=== PATIENT | female | born 1960 | race Caucasian/White ===

== ENCOUNTER → 2016-07-11 | Outpatient (CLI) | payer OTHER ==
--- NOTE | 2016-08-01 11:04 | CODING QUERY NO DIAGNOSIS ---
TREATMENT RENDERED WITHOUT A DIAGNOSIS To promote full compliance with coding requirements relating to patient care, physician participation is requested in all cases of internal grinding machine operator uncertainty. Please assist us with providing a diagnosis/symptom for the test(s) below: A diagnosis/symptom was not documented on your Order. A valid diagnosis/symptom is required to bill all insurances. Please remember that we are unable to code a diagnosis of rule out, probable, possible, questionable, or suspected. Tests that require a diagnosis: * INFLUENZA VIR A OR B ANTIGEN DIAGNOSIS: Provider Signature: Date: Thank you Rebekah Wessington [employer] Once completed, please kindly fax back to [phone] For questions please call [phone]
== END | disposition home or self-care (01) ==
LOC: C.LAB 17:38
PROVIDERS: ATTEND Nurse Practitioner
DX: J18.1 Lobar pneumonia, unspecified organism (principal)

== ENCOUNTER → 2016-08-06 | Outpatient (CLI) | payer OTHER | END | disposition home or self-care (01) | LOC: C.LAB1850 16:23 | PROVIDERS: ATTEND Internal Medicine | DX: E03.9 Hypothyroidism, unspecified (principal) ==

== ENCOUNTER → 2016-09-16 | Outpatient (CLI) | payer OTHER ==
--- NOTE | 2016-09-17 14:34 | MAMMOGRAPHY REPORT ---
BILATERAL DIGITAL SCREENING MAMMOGRAM TOMOSYNTHESIS WITH CAD: 09/16/2016 CLINICAL HISTORY: Routine screening. Patient has no complaints. TECHNIQUE: Breast tomosynthesis in addition to standard 2D mammography was performed. Current study was also evaluated with a Computer Aided Detection (CAD) system. COMPARISON: Comparison is made to exams dated: 06/21/2015 mammogram, 06/20/2014 mammogram, 06/17/2013 mammogram, 06/16/2012 mammogram, 05/21/2011 mammogram, and 12/04/2010 ultrasound - [facility]. BREAST COMPOSITION: The tissue of both breasts is heterogeneously dense, which may obscure small ma sses. FINDINGS: There is a stable metallic biopsy marker in the 11:00 to 12:00 right breast, and stable sc attered benign-appearing calcifications bilaterally. No suspicious mass, architectural distortion o r cluster of microcalcifications is seen. IMPRESSION: ACR BI-RADS CATEGORY 1: NEGATIVE There is no mammographic evidence of malignancy. A 1 year screening mammogram is recommended. The p atient will receive written notification of the results. Approximately 10% of breast cancers are not detected with mammography. A negative mammographic repor t should not delay biopsy if a clinically suggestive mass is present. Adriana Shanks M.D. ay/:09/16/2016 18:21:11 Crop And Soil Scientist: Ana PEDERSON(Susu)(M), [facility] letter sent: Normal 1/2 BI-RADS Code: ACR BI-RADS Category 1: Negative
== END | disposition home or self-care (01) ==
LOC: C.MAMM 15:50
PROVIDERS: ATTEND Obstetrics & Gynecology
DX: Z12.31 Encounter for screening mammogram for malignant neoplasm of breast (principal)

== ENCOUNTER 2025-03-10 07:24 | Observation (INO) ==
--- NOTE | 2025-02-07 12:59 | PAT Medication Instructions ---
Medication Instructions Date of Service February 07, 2025 Home Medications Medication Instructions Recorded diclofenac sodium 1 % topical gel 2 g topical QID PRN pain (scale 12/31/23 (Arthritis Pain (diclofenac)) score 4-6) #100 grams cholecalciferol (vitamin D3) 50 50 mcg PO DAILY #90 caps 07/26/25 mcg (2,000 unit) capsule diclofenac sodium 1 % topical gel (Arthritis Pain (diclofenac)) 2 g topical QID PRN cholecalciferol (vitamin D3) 50 mcg (2,000 unit) capsule 50 mcg PO DAILY levothyroxine 100 mcg tablet 100 mcg PO QAM ASK your surgeon for instructions diclofenac sodium 1 % topical gel (Arthritis Pain (diclofenac)) 2 g topical QID PRN DO NOT take the morning of surgery cholecalciferol (vitamin D3) 50 mcg (2,000 unit) capsule 50 mcg PO DAILY Take morning of surgery With a small sip of water, OTHERWISE NOTHING TO EAT OR DRINK AFTER MIDNIGHT: levothyroxine 100 mcg tablet 100 mcg PO QAM Other Notes If you have any questions please call us at [phone] or [phone] or [phone] or [phone]
--- NOTE | 2025-02-13 09:45 | Anesthesiology Consultation ---
Date of Service February 13, 2025 Assessment & Plan (1) Encounter for pre-operative examination: - Infectious disease screening: Per assessment on 02/13/25- No known recent infectious disease contacts or current infectious disease symptoms. - Outpatient joint assessment: Pt currently scheduled for inpatient pathway. If surgeon requests review for outpatient joint pathway, patient is an acceptable candidate for outpatient joint program from anesthesia standpoint pending surgeon's office assessment that patient is motivated, has good support and completes Same Day Joint Program preop requirements. - [place] PCP visit 02/07/25: "With no prior cardiovascular problems and normal EKG in July 2024 do not anticipate contraindication for incoming surgical procedure.. We should be able to prescribe amoxicillin prior to dental work for prophylactic purposes" - Low TSH 0.038 on 02/08/25 ordered by PCP. Patient states PCP reviewed those labs and already adjusted/decreased her Levothyroxine since then. Free T4 added to preop labs drawn at [facility] 02/13/25- Free T4 WNL at 1.14. Reviewed with Dr. Isabel- nothing further needed preoperatively. At anesthesiologist discretion DOS if further needed after DOS evaluation from their perspective. Chart Review Chart Review: Acceptable Risk for Surgery (pending evaluation DOS) and Patient seen in Pre Admission Testing Teaching & Discussion Pre-Anesthesia Teaching/Discussion Notes: Instructed NPO after midnight before surgery,except medications with 15 cc of water. Medication instructions provided according to the [facility] guidelines. History Surgery Operation Date: 03/10/25 11:00 Proposed Procedures p Robotic Assisted Left Total Knee Arthroplasty - Alfonzo Damian DO Height/Weight Height: 5 ft 1.5 in Weight: 73.2 kg Allergies Allergy/AdvReac Type Severity Reaction Status Date / Time No Known Allergies Allergy Unknown Verified 02/08/25 13:07 Medications Home Medications Medication Instructions Recorded Confirmed Last Taken diclofenac sodium 1 % topical gel 2 g topical QID PRN pain (scale 12/31/23 02/08/25 Unknown (Arthritis Pain (diclofenac)) score 4-6) #100 grams cholecalciferol (vitamin D3) 50 50 mcg PO DAILY #90 caps 07/26/24 02/08/25 Unknown mcg (2,000 unit) capsule levothyroxine 100 mcg tablet 100 mcg PO QAM 10/03/24 02/08/25 10/13/24 Past Medical History Medical History Gait disturbance R/t knees, completed PT early 2024 History of anxiety No recent issues History of hypothyroidism History of pelvic mass Per remote records, patient unsure Hx of hyperlipidemia Exercise / Class Metabolic Activity II 4-5 Yardwork/Stairs/Walk up hill (one FS: No CP, no SOB) Past Family History Family History Father Myocardial infarction Sister Myocardial infarction Breast cancer Mother Diabetes Hypertension Hypercholesteremia Denies family history of Ovarian cancer Prostate cancer Colorectal cancer Past Surgical History Surgical History H/O oral surgery H/O tubal ligation H/O: hysterectomy History of carpal tunnel surgery of right wrist History of cryosurgery cervix Hx of colonoscopy (2024) S/P section S/P dilation and curettage S/P endometrial ablation Status post hysteroscopy Past Anesthesia History No Hx of Anesthesia Complications and No Family Hx of Anesthesia Complications (except sister with anxiety r/t surgery/anesthesia) History of PONV No Hx of PONV and No Hx of Motion Sickness Social History Smoking Status: Never smoker Do You Dip or Chew Tobacco: No Hx Alcohol Use: No Hx Substance Use: Yes substance use type: marijuana (medical card, very rare use) Review of Systems Patient denies chest pain, shortness of breath, dyspnea on exertion, fever, chills, cough, wheezing. Physical Exam Vital Signs BP 130/79 P 58 TEMP 97.9 SP02 99%RA RESP 16 Physical Full cervical extension range of motion. Full TMJ range of motion. TMD 3 finger breaths Mallampati Score I Dentition: left upper side current temporary tooth (crown to be placed before surgery), + implants (upper front) Lungs: clear throughout to auscultation Cardiac: regular rate and rhythm, no murmurs noted Spine: normal Carotid arteries: negative bruit Extremities: no LE edema Lab Results Anesthesia Preop Results Results Anesthesia Widget: WBC 4.75 K/ul (4.8-10.8) L 02/13/25 Hgb 13.3 g/dl (12.0-16.0) 02/13/25 Hct 41.1 % (37.0-47.0) 02/13/25 Plt 211 K/uL (130-400) 02/13/25 Na 139 mmol/L (136-145) 02/13/25 K 4.4 mmol/L (3.5-5.1) 02/13/25 Cl 106 mmol/L (98-107) 02/13/25 CO2 30 mmol/L (21-32) 02/13/25 BUN 19 mg/dl (6-23) 02/13/25 Creat 0.80 mg/dl (0.6-1.2) 02/13/25 Glucose Level 92 mg/dl (70-99(Fasting)) 02/13/25 PT 10.3 Seconds (9.0-12.0) 02/13/25 PTT 28 Seconds (21-31) 02/13/25 INR 0.9 (0.9-1.1) 02/13/25 TSH 0.038 uIu/ml (0.300-4.500) L 02/08/25 Free T4 1.14 ng/dl (0.61-1.60) 02/13/25 Blood Type O Positive 02/13/25 Antibody Screen NEGATIVE 02/13/25 Testing Electrocardiogram Date: 07/25/24 SR with occasional PVCs. 68bpm. Chest X-Ray Date: 02/13/25 FINDINGS: Heart size and pulmonary vasculature are normal. No consolidation or pleural effusion. IMPRESSION: No acute findings.
--- NOTE | 2025-03-09 07:32 | History & Physical Report ---
Date of Service March 09, 2025 Assessment & Plan (1) Osteoarthritis of left knee: We will proceed with a left total knee arthroplasty. Postoperatively, she will be started on aspirin for DVT prophylaxis and kept overnight in the hospital for postop medical management. She plans to use energy physical therapy at discharge. History of Present Illness Chief Complaint: Osteoarthritis of the left knee. Primary Care Provider: Ema Hernandez MD Angela is a pleasant 64-year-old female who has been dealing with chronic increasing left knee pain. She has been seeing another provider in our office. X-rays have shown advanced arthritis of the left knee. After failing conservative treatment, she has elected proceed with a left total knee arth roplasty. Allergies Allergy/AdvReac Type Severity Reaction Status Date / Time No Known Allergies Allergy Unknown Verified 02/08/25 13:07 Home Medications Medication Instructions Recorded Confirmed Type diclofenac sodium 1 % topical gel 2 g topical QID PRN pain (scale 12/31/23 02/08/25 Rx (Arthritis Pain (diclofenac)) score 4-6) #100 grams cholecalciferol (vitamin D3) 50 50 mcg PO DAILY #90 caps 07/26/24 02/08/25 Rx mcg (2,000 unit) capsule levothyroxine 100 mcg tablet 100 mcg PO QAM 10/03/24 02/08/25 History Past Med/Surg History Problem List Osteoarthritis of left knee Encounter for pre-operative examination Vitamin D deficiency disease Gait disturbance Anxiety (Acute) Compression fracture of lumbar vertebra (Acute) History of hyperlipidemia (Acute) Hypothyroidism (Acute) Neoplasm of uncertain behavior of skin (Acute) Medical History History of anxiety No recent issues Gait disturbance R/t knees, completed PT early 2024 Hx of hyperlipidemia History of hypothyroidism History of pelvic mass Per remote records, patient unsure Surgical History History of carpal tunnel surgery of right wrist Hx of colonoscopy (2024) H/O tubal ligation H/O: hysterectomy H/O oral surgery S/P endometrial ablation Status post hysteroscopy S/P dilation and curettage S/P section History of cryosurgery cervix Family History Father Myocardial infarction Sister Myocardial infarction Breast cancer Mother Diabetes Hypertension Hypercholesteremia Denies family history of Ovarian cancer Prostate cancer Colorectal cancer Social History Smoking Status: Never smoker Second Hand Exposure: No; Do You Dip or Chew Tobacco: No; Tobacco Cessation Education Requested by Patient: No Hx Alcohol Use: No Hx Substance Use: Yes Preferred Language: Polish Communication Ability: Effective Visual Impairment: No Limitations Hearing Ability: Normal Stock Associate Required: No Beliefs That Will Affect Care: None marital status: Current Living Situation: Parent Current Living Situation Comment: lives with mother current occupational status: employed current occupation: [employer] Other Information That Helps Us Care for You: No Feels Safe at Home: Yes Safety Concerns: Feels Safe At This Time Childhood Exposure to Second-Hand Smoke: No Dental Care, Regularly: Yes Physical Activity Frequency: Does not Exercise Seatbelt Use: always Sunscreen Use: Yes Assistive Devices: Contacts and Glasses Review of Systems All systems reviewed & are unremarkable except as noted in HPI & below. Physical Exam On physical exam of the left knee, she has slight varus forming. She has tenderness palpation of the distal medial femoral condyle and over the medial joint line.. Constitutional WD/WN, vitals as above Eyes PERRL, conjunctivae normal, anicteric sclerae ENMT external ear and nose normal, oropharynx normal Neck trachea midline, no thyromegaly Respiratory normal respiratory effort Cardiovascular RRR, no murmur, no edema Gastrointestinal (Abdomen) normal bowel sounds, soft, nontender, no hepatosplenomegaly Psychiatric A+Ox3, euthymic affect Results & Data Results & Data Laboratory Results . Diagnostic Findings . PG Care Time/CCT Total # of Minutes Spent Total Time Spent with Patient: Total time spent is greater than 50% in coordination of care (as documented) at patient's floor/unit and/or counseling patient: Coding Level of Care Code None Diagnoses Osteoarthritis of left knee M17.12
[~2025-03-10 07:24] MED LIST: ROPIVACAINE 0.5% 5 MG/ML 30 ML VIAL ONE
[2025-03-10] MEDS ORDERED: MIDAZOLAM HCL 1 MG/ML 2ML VIAL ONE (07:29)
[2025-03-10] MEDS ORDERED: LIDOCAINE 2% 2 ML VIAL/AMP(20MG/ML) INFIL ONE (07:34)
[2025-03-10] MEDS: dexAMETHasone**PF** 10 MG/ML VIAL IV SCH (07:54)
[2025-03-10] MEDS: ACETAMINOPHEN 500 MG TAB PO SCH ×2 (07:54→13:20)
[2025-03-10] MEDS: FAMOTIDINE 20 MG TAB PO SCH (07:55)
[2025-03-10] MEDS: LR 500ML BOLUS, THEN 15ML/HR IV SCH (07:55)
[2025-03-10] MEDS: GABAPENTIN 300 MG CAP PO SCH (07:55)
[2025-03-10] MEDS: LR 60ML/HR IV SCH (07:55)
[2025-03-10] MEDS ORDERED: HYDROmorphone INJ 2 MG/ML SYR/VIAL IV PRN (08:36)
[2025-03-10] MEDS ORDERED: ATROPINE SULFATE 0.1 MG/ML 10ML SYR IV PRN (08:36)
[2025-03-10] MEDS ORDERED: ONDANSETRON INJ 2 MG/ML 2 ML VIAL IV PRN ×2 (08:36→12:57)
[2025-03-10] MEDS: TRANEXAMIC ACID 1,000 MG **IV Pre-op IV SCH (08:58)
--- NOTE | 2025-03-10 09:05 | History & Physical Bridge Note ---
Date of Service March 10, 2025 History & Physical Bridge Note I have examined the patient, reviewed the History & Physical and in the interval since the performance of the History & Physical I have noted the following changes of clinical significance: no changes noted
[2025-03-10] MEDS ORDERED: ePHEDrine sulfate 50 MG/5 ML SYR ONE (09:27)
[2025-03-10] MEDS: ORTHO JOINT ANESTHETIC ONE (09:51)
[2025-03-10] MEDS ORDERED: PROPOFOL IV EMULSION 10 MG/ML 100 ML VIAL IV ONE (10:00)
[2025-03-10] MEDS: ROPIV 0.5% 246mg, Ketorolac 30mg, EPINEPHrine 0.5mg in NSS INFIL SCH (10:19)
--- NOTE | 2025-03-10 10:26 | Operative Report ---
PG Post Operative Report Pre & Post Diagnosis Operation Date: 03/10/25 09:00 Pre-Op Diagnosis: Osteoarthritis of left knee Post-Op Diagnosis: Osteoarthritis of left knee I identified the patient and participated in the time-out.: Yes Procedure Operation Date: 03/10/25 09:00 Actual Procedures p Robotic Assisted Left Total Knee Arthroplasty(Left) - Alfonzo Damian DO Surgeon Alfonzo Damian DO X Ray Equipment Tester Cheko Dey PA-C Estimated Blood Loss 30 Findings Consistent with Post-Op Diagnosis Specimens Left femoral tibial bone Description of Procedure Implants used: I used a Dorcas Persona total knee arthroplasty system with a size 6 standard PS femur, C tibia, 29 patella, and a size 10 CPS polyethylene bearing. All co mponents were press-fit in place. Angela arrived [facility] for the above procedure. She was seen in the preoperative holding area and the operative extremity was identified and signed. She was given a preoperative antibiotic, TXA, a spinal anesthetic and an adductor nerve block. She was taken back to the operating room and laid on the table in supine position. She was given basic sedation. The operative knee was then prepped and draped in sterile fashion. A timeout was done, and the patient and the operative extremity was properly identified. A midline incision was made directly over the patella. Dissection was taken down to the extensor mechanism. A medial parapatellar arthrotomy was used. The medial retinaculum was released and the fat pad was mostly excised. The knee was flexed and the ACL, PCL, and meniscus were removed. The alignment of the knee replacement was assisted with a Geni robotic knee. The femoral array was pinned in the distal femur and the tibial array was pinned using a percutaneous technique in the upper shaft of the tibia. The robot was appropriately calibrated and the structure of the knee was mapped out. The components were then manipulated on the screen to account for any malalignment and to assist in gap balancing. Once I was happy with the placement of the components on the screen, a distal femoral cutting guide was brought in place. The distal femur was then resected. The femur measured to be a size 6. A 4-in-1 cutting block was then put into place by the robot and 2 peg holes were drilled. The 4-in-1 cutting block was then impacted into place and anterior, posterior, and chamfer cuts were made. The cutting block was then brought down to the tibia and pinned into place. The proximal tibia was then resected. The posterior aspect of the knee was then opened up and any additional meniscus fragments and osteophytes were removed. The tibia measured to be a size C. The tibial plate was then placed in the appropriate rotation and the tibia was drilled and punched. Trial components were then placed. The patella was then everted and 9 mm was resected off the posterior aspect of the patella. The patella measured to be a size 29. 3 peg holes were then drilled. A trial patella was placed. A size 10 CPS polyethylene insert was then trialed. The knee was brought through a full range of motion and felt to be stable. Trial components were then removed. The surrounding soft tissues were injected with 100 cc of an orthopedic pain control cocktail. All components were then press-fit into place. The final polyethylene insert was then snapped into place. The tourniquet was deflated. Hemostasis was obtained. A dilute betadyne lavage was then done for 3 minutes. The joint was then irrigated with normal saline solution. The medial parapatellar arthrotomy was then closed with #1 Vicryl suture. The skin was closed with 2-0 Vicryl, 3-0V lock suture, and Wu Zipline. A soft compressive dressing was placed. She was then transferred to a hospital bed and taken to the postanesthesia care unit in stable condition. She tolerated the procedure well. Cheko Dey PA-C, was present for the entire procedure. He was critical for patient positioning, prepping, draping, retraction exposure, wound closure and application of sterile dressing. I attest to the content of the Intraoperative Record and any orders documented therein. Any exceptions are noted below.
--- NOTE | 2025-03-10 11:31 | XRay Report ---
XR knee LT 1 or 2V routine CLINICAL HISTORY: Surgical Post Op COMPARISON: 07/25/2024 FINDINGS: Left knee prosthesis shows no hardware complication. There is expected soft tissue gas. IMPRESSION: Unremarkable postoperative exam. ACT 112: Negative or not required by law. Electronically signed by: Brooks Perkins M.D. 03/10/2025 11:30 AM
--- NOTE | 2025-03-10 11:39 | Anesthesiology Progress Note ---
Date of Service March 10, 2025 Anesthesia Post Procedure Vital Signs Vital Signs: Temp Pulse Pulse Resp BP Pulse Ox O2 Del Method 03/10/25 11:30 36.3 C L 61 13 129/64 98 Room Air 03/10/25 11:20 62 15 135/69 95 Room Air 03/10/25 11:10 67 17 136/64 96 Room Air 03/10/25 11:00 66 17 126/67 96 Room Air 03/10/25 10:54 36.0 C L 77 22 118/64 98 Oxymask 03/10/25 07:41 36.5 C 68 18 183/98 H 98 Room Air O2 Flow Rate 03/10/25 11:30 03/10/25 11:20 03/10/25 11:10 03/10/25 11:00 03/10/25 10:54 10 03/10/25 07:41 Transfer of Care Handoff Completed per policy Notes Mental Status: alert / awake / arousable and participated in evaluation Patient Amnestic to Procedure: Yes Nausea / Vomiting: adequately controlled Pain: adequately controlled Airway Patency, RR, SpO2: stable & adequate BP & HR: stable & adequate Hydration State: stable & adequate Anesthetic Complications: no major complications apparent and Pt Satisfied with anesthetic care
[2025-03-10] MEDS ORDERED: HYDROmorphone INJ 0.5 MG/0.5 ML SYR IV PRN (12:57)
[2025-03-10] MEDS ORDERED: METOCLOPRAMIDE HCL INJ 5 MG/ML 2 ML VIAL IV PRN (12:57)
[2025-03-10] MEDS ORDERED: MAGNESIUM HYDROXIDE SUSP 30 ML UDC PO PRN (12:57)
[2025-03-10] MEDS ORDERED: NALOXONE HCL 0.4 MG/1 ML VIAL/CARP IV PRN (12:57)
[2025-03-10] MEDS: KETOROLAC TROMETHAMINE 15 MG/ML VIAL IV SCH (13:19)
[2025-03-10] MEDS: SODIUM CHLORIDE 0.9% 1,000 ML IV SCH (13:25)
[2025-03-10] MEDS: ASPIRIN 81 MG ECTAB PO SCH (21:36)
[2025-03-10] MEDS: SENNA 8.6 MG TAB PO SCH (21:37)
[2025-03-10] MEDS: DOCUSATE SODIUM 100 MG CAP PO SCH (21:37)
[2025-03-11] MEDS: LEVOTHYROXINE SODIUM 100 MCG TABLET PO SCH (05:09)
[2025-03-11] MEDS: MULTIVITAMIN TAB PO SCH (08:06)
[2025-03-11 08:15] VITALS: BP 133/71; PULSE 67; RESP 16; TEMP 97.7; O2SAT 99
--- NOTE | 2025-03-11 09:13 | Orthopedic Progress Note ---
Date of Service March 11, 2025 Assessment & Plan (1) Status post left knee replacement: Overall she is doing very well. She is not having much pain in the left knee. She will be seen by physical therapy today for ambulation and range of motion exercises. The nursing staff can change her dressing after physical therapy. She is on aspirin for DVT prophylaxis. She can be discharged home later today. She will follow-up with orthopedics in 2 weeks. Vanessa Miller was seen and examined at bedside this morning. Overall she is doing very well. She is not having much pain in the left knee. She has been up and ambulated to the bathroom. She has no complaints.. Review of Systems All systems reviewed & are unremarkable except as noted in HPI & below. Physical Exam On physical exam the left knee, the dressing is clean and dry. Her leg is out in full extension. She has active dorsiflexion and plantarflexion of her left ankle.. Results & Data Results & Data Laboratory Results . Diagnostic Findings Postoperative x-rays of the left knee show the prosthesis to be in anatomic alignment without any evidence of fracture, dislocation, or loosening.. PG Care Time/CCT Total # of Minutes Spent Total Time Spent with Patient: Total time spent is greater than 50% in coordination of care (as documented) at patient's floor/unit and/or counseling patient: Coding Level of Care Code 98531 Post Operative Follow-Up Diagnoses Status post left knee replacement Z96.652
== END 2025-03-11 11:15 | disposition home health service (06) ==
LOC: 3E 07:24 → ASU 07:24